=== PATIENT | female | born 1960 | race Caucasian/White ===

== ENCOUNTER 2017-08-31 11:01 | Emergency (ER) | payer SELFPAY ==
[~2017-08-31] VITALS: Ht 160 cm; Wt 65.0 kg
[2017-08-31] MEDS ORDERED: ACETAMINOPHEN 325MG TABLET PO ONE (13:30)
[2017-08-31 15:38] VITALS: BP 159/83
== END 2017-08-31 15:40 | disposition home or self-care (01) ==
LOC: ER 11:21
DX: S50.12XA Contusion of left forearm, initial encounter (principal); V03.90XA Pedestrian on foot injured in collision with car, pick-up truck or van, unspecified whether traffic or nontraffic accident, initial encounter; Y93.01 Activity, walking, marching and hiking; Y92.410 Unspecified street and highway as the place of occurrence of the external cause; R03.0 Elevated blood-pressure reading, without diagnosis of hypertension; E03.9 Hypothyroidism, unspecified
CPT/HCPCS: 73090; 99284